=== PATIENT | male | born 1985 | race Caucasian/White ===

== ENCOUNTER 2016-12-28 16:45 | Outpatient (CLI) | payer BC ==
[2016-12-28 17:14] LABS: #Basophils 0.2 thou/uL (0.0-0.2); #Eosinphils 0.2 thou/uL (0.0-0.7); #Lymphocytes 2.6 thou/uL (1.20-3.40); #Monocytes 0.8 thou/uL (0.11-0.59); #Neutrophils 6.4 thou/uL (1.40-6.50); %Basophils 1.5 % (0.0-1.0); %Eosinophils 1.7 % (0.0-10.0); %Lymphocytes 25.6 % (21.0-51.0); %Monocytes 8.2 % (0.0-10.0); Hematocrit 32.3 % (42.0-52.0); Mean Platelet Volume 7.9 fL (7.4-10.4); Red Blood Cell (RBC) Count 3.61 mill/uL (4.70-6.10); White Blood Cell (WBC) Count 10.1 thou/uL (4.8-10.8)
[2016-12-28 17:16] LABS: ALT (SGPT) 8 U/L (8-55); AST (SGOT) 11 U/L (5-34); Alkaline Phosphatase 78 U/L (40-150); Anion Gap 17 mmol/L (10-20); BUN (Urea Nitrogen) 14 mg/dL (8.9-20.6); Bilirubin, Total 0.3 mg/dL (0.2-1.2); Calc. Creatinine Clearance 0 mL/min (70-130); Calcium 10.1 mg/dL (7.8-10.44); Carbon Dioxide 26 mmol/L (22-29); Chloride 99 mmol/L (98-107); Estimated GFR-MDRD 68; Globulin 5.7 g/dL (2.4-3.5); Protein, Total 9.6 g/dL (6.0-8.3)
--- NOTE | 2016-12-28 17:16 | RAD ---
PA AND LATERAL CHEST: 12/28/16 HISTORY: Patient had lung surgery for empyema two weeks ago at [facility]. COMPARISON: None. There is pleural and parenchymal changes in the left base which have the appearance of more chronic a ppearing change. The right lung is clear. IMPRESSION: Chronic appearing pleural and parenchymal changes of the left base. POS: [facility]
== END 2016-12-28 16:46 | disposition home or self-care (01) ==
LOC: SCSRAD 16:45
PROVIDERS: ATTEND Family Medicine
DX: J86.9 Pyothorax without fistula (principal); D64.9 Anemia, unspecified; F32.89 Other specified depressive episodes; N28.9 Disorder of kidney and ureter, unspecified
CPT/HCPCS: 71020; 80053; 84439; 84443; 85025